=== PATIENT | male | born 1990 | race Caucasian/White ===

== ENCOUNTER → 2018-05-28 15:02 | Outpatient (CLI) | payer OTHER, SELFPAY ==
[2018-05-28 18:25] LABS: Anion Gap 7 (5-15); BUN 17 mg/dL (7-18); BUN/Creat Ratio 11.2 RATIO (10-20); Calcium,Total 9.1 mg/dL (8.5-10.1); Chloride 103 mmol/L (98-107); Creatinine, Serum 1.52 mg/dL (0.70-1.30); EST Glomerular Filtration Rate 58 mL/min (>60); Est Glom Filt Rate - Afr Amer 70 mL/min (>60); Glucose 94 mg/dL (74-106); Potassium 3.4 mmol/L (3.5-5.1); Sodium Level 140 mmol/L (136-145)
== END ==
DX: E87.6 Hypokalemia (principal)
CPT/HCPCS: 36415; 80048